=== PATIENT | female | born 2000 | race Caucasian/White ===

== ENCOUNTER 2022-02-23 21:10 | Emergency (ER) | payer OTHER ==
[~2022-02-23] VITALS: Ht 154.9 cm; Wt 82.1 kg
--- NOTE | 2022-02-23 21:25 | NUR ---
Dr. Magaña at bedside for MSE.
[2022-02-23] MEDS ORDERED: OXYCODONE/APAP 5-325 MG TABLET PO ONE (21:30)
[2022-02-23] MEDS ORDERED: OXYCODONE/APAP 5-325 MG TABLET ONE (21:58)
[2022-02-23 22:00] LABS: HEMATOCRIT 34.1 % (31.2-41.9); MEAN CORPUSCULAR HEMOGLOBIN 27.3 uug (24.7-32.8); PLATELET COUNT (AUTO) 224 K/uL (179-408)
[2022-02-23] MEDS ORDERED: IBUPROFEN 800 MG TABLET ONE (22:00)
[2022-02-23 22:04] LABS: CARBON DIOXIDE 30 mmol/L (21-32); CHLORIDE 106 mmol/L (98-107); CREATININE 0.6 mg/dL (0.6-1.3); GLUCOSE 106 mg/dL (74-106); POTASSIUM 3.8 mmol/L (3.5-5.1); UREA NITROGEN, BLOOD 7 mg/dL (7-18)
[2022-02-23 22:11] LABS: ALANINE AMINOTRANSFERASE 44 U/L (14-59); ALKALINE PHOSPHATASE 80 U/L (50-136); ASPARTATE AMINOTRANSFERASE 22 U/L (15-37); BILIRUBIN,DIRECT < 0.1 mg/dL (0.0-0.2); BILIRUBIN,TOTAL 0.2 mg/dL (0.2-1.0); TOTAL PROTEIN, SERUM 7.6 g/dL (6.4-8.2)
--- NOTE | 2022-02-23 22:11 | NUR ---
Xray at bedside.
[2022-02-23] MEDS ORDERED: OXYC-128 PO (22:39)
--- NOTE | 2022-02-23 22:49 | NUR ---
Patient discharged to home in stable condition. Written and verbal after care instructions given. Patient verbalizes understanding of instructions. Stressed follow up or return to ER for worsening s/s. Patient out of ER with steady gait, no acute signs of distress, VSS, all belongings taken.
[2022-02-23 22:50] VITALS: BP 122/70
== END 2022-02-23 22:50 | disposition home or self-care (01) ==
LOC: ER 21:17
DX: R55 Syncope and collapse (principal); M54.50 Low back pain, unspecified; R00.0 Tachycardia, unspecified
CPT/HCPCS: 36415; 72100; 83735; 85025; 93005; A4663

== ENCOUNTER 2024-01-24 18:42 | Emergency (ER) | payer OTHER ==
[~2024-01-24] VITALS: Ht 154.9 cm; Wt 77.1 kg
[~2024-01-24 18:42] MED LIST: OXYC-128 PO
[2024-01-24 18:54] VITALS: O2SAT 99
[2024-01-24 19:13] LABS: *BILIRUBIN,URIN NEGATIVE (NEGATIVE); *BLOOD, URINE 2+ (NEGATIVE); *COLOR,URINE YELLOW (YELLOW); *KETONES,URINE NEGATIVE (NEGATIVE); *PROTEIN,URINE NEGATIVE (NEGATIVE); *UROBILINOGEN,URINE 0.2 E.U./dl (NORMAL); LEUKOCYTE ESTERASE ,URINE 1+ (NEGATIVE); NITRITE, URINE NEGATIVE (NEGATIVE); UGLUCOSE NEGATIVE (NEGATIVE)
[2024-01-24 19:14] LABS: *CLARITY,URINE HAZY (CLEAR)
[2024-01-24 20:08] LABS: *URINE HCG, QUAL NEGATIVE (NEGATIVE)
[2024-01-24] MEDS ORDERED: SULFAMETH/TRIMETH 800/160 MG TABLET ONE (20:15)
[2024-01-24] MEDS: SULFAMETH/TRIMETH 800/160 MG TABLET PO ONE (20:15)
[2024-01-24] MEDS ORDERED: PHEN-705 PO (20:15)
[2024-01-24] MEDS ORDERED: SULF1TAB48 PO (20:15)
[2024-01-24 20:59] LABS: BACTERIA,URINE MANY /HPF (NONE SEEN); RBC,URINE 20-50 /HPF (0-3); SQUAMOUS EPITHELIAL CELL,UR FEW /HPF (NONE SEEN); WBC,URINE TNTC /HPF (0-3)
== END 2024-01-24 20:30 | disposition home or self-care (01) ==
LOC: ER 18:45
DX: N39.0 Urinary tract infection, site not specified (principal); R10.2 Pelvic and perineal pain; Z79.899 Other long term (current) drug therapy
CPT/HCPCS: 84703; A4606; A4663

== ENCOUNTER 2025-07-23 18:13 | Emergency (ER) | payer OTHER ==
[~2025-07-23] VITALS: Ht 154.9 cm; Wt 81.6 kg
[~2025-07-23 18:13] MED LIST changes: +PHEN-705 PO; +SULF1TAB48 PO
[2025-07-23 18:15] VITALS: BP 136/80
[2025-07-23] MEDS ORDERED: AZITHROMYCIN 250 MG TABLET ONE (18:49)
[2025-07-23] MEDS ORDERED: ALBU2.5V38 NEB (18:51)
[2025-07-23] MEDS ORDERED: ALBU8.5H8 INH (18:51)
[2025-07-23] MEDS ORDERED: AZIT500T PO (18:51)
[2025-07-23] MEDS ORDERED: PRED50TA PO (18:51)
[2025-07-23] MEDS: AZITHROMYCIN 250 MG TABLET PO ONE (18:53)
[2025-07-23 19:08] VITALS: BP 136/80; O2SAT 98
== END 2025-07-23 19:09 | disposition home or self-care (01) ==
LOC: ER 18:15
DX: J18.9 Pneumonia, unspecified organism (principal); J45.909 Unspecified asthma, uncomplicated; Z79.52 Long term (current) use of systemic steroids
CPT/HCPCS: 99283; J7512; A4606; A4663; Q0144